=== PATIENT | male | born 1995 | race Caucasian/White ===

== ENCOUNTER 2016-08-01 16:27 | Emergency (ER) | payer MEDICAID ==
[2016-08-01 16:37] VITALS: BP 150/90
--- NOTE | 2016-08-01 16:52 | UC ---
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 - History of Current Complaint Chief Complaint: UCBackPain Stated Complaint: BACK PAIN Time Seen by Provider: 08/01/16 16:50 Hx Obtained From: Patient - Allergies/Home Medications Allergies/Adverse Reactions: Allergies Allergy/AdvReac Type Severity Reaction Status Date / Time No Known Allergies Allergy Verified 08/01/16 16:37 Home Medications: Home Medications Acetaminophen [Eql Acetaminophen Extra S] 1,000 mg PO ONCE 08/01/16 [History Confirmed 08/01/16] PMH/Surg Hx/FS Hx/Imm Hx Previously Healthy: Yes Cardiovascular History: Hypertension - Surgical History Surgical History: None - Family History Known Family History: Negative: Cardiac Disease, Hypertension, Diabetes - Social History Occupation: Employed Full-time Lives: With Family Alcohol Use: None Substance Use Type: None Smoking Status (MU): Heavy Every Day Tobacco Smoker Type: Cigarettes Amount Used/How Often: 1 PPD Household Exposure Type: Cigarettes Cessation Counseling: Patient Advised to Stop Review of Systems Constitutional: Negative Skin: Negative Eyes: Negative ENT: Negative Respiratory: Negative Cardiovascular: Negative Gastrointestinal: Negative Genitourinary: Negative Motor: Negative Neurovascular: Negative Musculoskeletal: Other: - lower bcak pain Neurological: Negative Psychological: Negative All Other Systems Reviewed And Are Negative: Yes Physical Exam Triage Information Reviewed: Yes Vital Signs: Initial Vital Signs Temp 98.9 F 08/01/16 16:31 Pulse 101 08/01/16 16:31 Resp 17 08/01/16 16:31 BP 150/90 08/01/16 16:31 Pulse Ox 99 08/01/16 16:31 Musculoskeletal: Positive: Other: - Spine have no noted deformities , Curvature of thoracic, and lumbar spine are within normal limits. Bony features of shoulders and hips are of equal height bilaterally. Posture is upright, and gait is abnormal. Spinous processes of T1-L5 palpable, midline, and non-tender; No step-offs. left lumbar paraspinal tenderness. Flexion, extension, and rotation of the remaining spinal column is within normal limits. Patient can flex forward and reach toes with minimal pain. movement n any direction causes discomfort Neurological: Positive: Alert, Other: - negative SLR, patellar reflexes intact Psychological Exam: Normal Skin Exam: Normal Back Pain Course/Dx - Course Course Of Treatment: exam completed. exacerbation of chronic lower back pain. no red flags to warrant imaging at this time. will refer to PT, treat with flexeril and naproxen - Differential Dx/Diagnosis Differential Diagnosis/HQI/PQRI: Herniated Disc, Strain, Sprain Provider Diagnoses: lower back pain, elevated blood pressure Discharge - Discharge Plan Condition: Stable Disposition: HOME Prescriptions: Cyclobenzaprine TAB* [Flexeril 10 MG TAB*] 10 mg PO BID PRN #10 tab PRN Reason: Spasms - Muscle Naproxen TAB* [Naprosyn 375 mg TAB*] 375 mg PO BID PRN #20 tab PRN Reason: Pain Patient Education Materials: Low Back Strain (ED) Referrals: KATHLEEN Ayala [Primary Care Provider] - Additional Instructions: Start flexeril as directed. Do not drink alcohol or drive while taking flexeril. Please call physical therapy for further evaluation and treatment. Take naproxen for fever or pain. Increase fluids and rest. Please review your discharge instructions. If your symptoms do not improve please call your primary care provider or return to urgent care. Your blood pressure is elevated. Please contact your primary care provider within 1 -4 weeks for further evaluation.
[2016-08-01] MEDS ORDERED: Ketorolac INJ* 60 MG/2 ML VIAL IM ONE (17:03)
== END 2016-08-01 17:35 | disposition home or self-care (01) ==
LOC: UCCORT 16:27
DX: M54.5 Low back pain (principal); I10 Essential (primary) hypertension; F17.210 Nicotine dependence, cigarettes, uncomplicated
CPT/HCPCS: 96372; 99212; G0463; J1885

== ENCOUNTER 2018-09-14 15:29 | Emergency (ER) | payer OTHER ==
[2018-09-14] MEDS ORDERED: Ibuprofen ADULT LIQ* 600 MG/30 ML UDC PO ONE (17:08)
--- NOTE | 2018-09-14 17:08 | UC ---
UC General HPI - HPI Summary HPI Summary: pt states back of tongue feels raw and throat has felt swollen for 2-3 days. no cough, fever or sob. pt questioned about his rapid HR, he states "they always get nervous about that when I go to the doctor". no cp or palpitations. - History of Current Complaint Chief Complaint: UCGeneralIllness Stated Complaint: TONGUE/THROAT CONCERN Time Seen by Provider: 09/14/18 17:01 Hx Obtained From: Patient Onset/Duration: Gradual Onset Timing: Constant Pain Intensity: 0 - Allergy/Home Medications Allergies/Adverse Reactions: Allergies Allergy/AdvReac Type Severity Reaction Status Date / Time No Known Allergies Allergy Verified 09/14/18 16:30 Home Medications: Home Medications NK [No Home Medications Reported] 09/14/18 [History Confirmed 09/14/18] PMH/Surg Hx/FS Hx/Imm Hx Previously Healthy: Yes - Surgical History Surgical History: None - Family History Known Family History: Negative: Cardiac Disease, Hypertension, Diabetes - Social History Alcohol Use: None Substance Use Type: None Smoking Status (MU): Heavy Every Day Tobacco Smoker Type: Cigarettes Amount Used/How Often: 1 PPD Household Exposure Type: Cigarettes Review of Systems All Other Systems Reviewed And Are Negative: Yes Constitutional: Negative: Fever, Chills ENT: Positive: Sore Throat. Negative: Ear Ache, Sinus Congestion Respiratory: Negative: Shortness Of Breath, Cough Cardiovascular: Negative: Palpitations, Chest Pain Physical Exam Triage Information Reviewed: Yes Appearance: Well-Appearing Vital Signs: Initial Vital Signs Temp 99.4 F 09/14/18 16:24 Pulse 117 09/14/18 16:24 Resp 18 09/14/18 16:24 BP 149/96 09/14/18 16:24 Pulse Ox 98 09/14/18 16:24 Vital Signs Reviewed: Yes ENT: Positive: Pharyngeal erythema - with few vesciles for palate, tip of uvula. , TMs normal, Uvula midline, Other - No stridor.. Negative: Nasal congestion, Nasal drainage, Trismus, Muffled voice, Hoarse voice Neck: Positive: Supple, Tenderness @ - cervical nodes, Enlarged Nodes @ Respiratory: Positive: Lungs clear, Normal breath sounds, No respiratory distress Cardiovascular: Positive: No Murmur, Tachycardia - 120 Abdomen Description: Positive: Nontender, No Organomegaly, Soft Bowel Sounds: Positive: Present Musculoskeletal: Positive: ROM Intact Neurological: Positive: Alert Psychological: Positive: Age Appropriate Behavior Skin Exam: Normal Diagnostics - Laboratory Lab Results: RAPID STREP=NEGATIVE Course/Dx - Course Course Of Treatment: pt tx with po fluids and motrin while here. he remained relaxed and shows no sign of dehydration. pt notes he drinks lots of fluids daily yet he continues to have a resting HR of 117 and elevated BP. he again notes that this happens during doctor visits. he noted the same during an ER visit 2 months ago. I think pt's HR may be more than white coat syndrome. 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 He agrees to f/u with his pcp or cardiology and will go to the Er for any worsening. i did advise that lethal arrhythmia's may be associated with rapid HR's but pt still declined. - Diagnoses Provider Diagnosis: Pharyngitis, Tachycardia Discharge - Sign-Out/Discharge Documenting (check all that apply): Patient Departure All imaging exams completed and their final reports reviewed: No Studies - Discharge Plan Condition: Stable Disposition: HOME Patient Education Materials: Pharyngitis (ED), Tachycardia (ED) Referrals: Danny Baldwin DO [Medical Doctor] - As Soon As Possible KATHLEEN Ayala [Medical Doctor] - Additional Instructions: FOLLOW UP KORIN IF THROAT NOT BETTER IN 3 -5 DAYS. GO TO THE ER FOR ANY WORSENING. - Billing Disposition and Condition Condition: STABLE Disposition: Home
[2018-09-14 17:51] VITALS: BP 149/63
== END 2018-09-14 17:55 | disposition home or self-care (01) ==
LOC: UCCORT 15:29
DX: J02.9 Acute pharyngitis, unspecified (principal); R00.0 Tachycardia, unspecified; F17.210 Nicotine dependence, cigarettes, uncomplicated
CPT/HCPCS: 87651; 99211; A9270-GY; G0463

== ENCOUNTER 2018-12-02 21:31 | Emergency (ER) | payer OTHER ==
[2018-12-02 21:49] VITALS: BP 154/75
[2018-12-02] MEDS ORDERED: Amoxicillin/Clavulanate TAB* 875 MG PO ONE (22:11)
--- NOTE | 2018-12-02 22:15 | UC ---
Throat Pain/Nasal Jung HPI - HPI Summary HPI Summary: 23 year old male presents with 2 day history of fever, chills, sore throat, nasal congestion, sinus pressure, and cough. States he had similar symptoms 6 days ago that had started to improve although they never fully resolved. Denies ear pain, dysphagia, chest pain, shortness of breath, abdominal pain, nausea, vomiting, or diarrhea. - History of Current Complaint Chief Complaint: UCRespiratory Stated Complaint: SORE THROAT COUGH HEADACHE CHILLS FEVER Time Seen by Provider: 12/02/18 21:35 Hx Obtained From: Patient Pain Intensity: 5 - Allergies/Home Medications Allergies/Adverse Reactions: Allergies Allergy/AdvReac Type Severity Reaction Status Date / Time No Known Allergies Allergy Verified 12/02/18 21:49 Home Medications: Home Medications Acetaminophen [Acetaminophen Extra Strength] 1,000 mg PO Q8HR PRN 12/02/18 [ History Confirmed 12/02/18] Ibuprofen TAB* [Motrin TAB* 800 MG] 1,000 mg PO Q8H PRN 12/02/18 [History Confirmed 12/02/18] PMH/Surg Hx/FS Hx/Imm Hx Cardiovascular History: Hypertension - Surgical History Surgical History: None - Family History Known Family History: Negative: Cardiac Disease, Hypertension, Diabetes - Social History Occupation: Employed Full-time Lives: With Family Alcohol Use: Rare Substance Use Type: None Smoking Status (MU): Heavy Every Day Tobacco Smoker Type: Cigarettes Amount Used/How Often: 1 PPD Household Exposure Type: Cigarettes Review of Systems All Other Systems Reviewed And Are Negative: Yes Constitutional: Positive: Fever, Chills Skin: Negative: Rash Eyes: Negative: Drainage, Eye Redness, Photophobia ENT: Positive: Sore Throat, Nasal Discharge, Sinus Congestion, Sinus Pain/ Tenderness. Negative: Ear Ache Respiratory: Positive: Cough. Negative: Shortness Of Breath Cardiovascular: Negative: Palpitations, Chest Pain Gastrointestinal: Negative: Abdominal Pain, Vomiting, Diarrhea, Nausea Genitourinary: Positive: Negative Musculoskeletal: Positive: Myalgia Neurological: Positive: Headache. Negative: Weakness, Paresthesia, Numbness Is Patient Immunocompromised?: No Physical Exam - Summary Physical Exam Summary: GENERAL APPEARANCE: Alert and cooperative obese adult male who appears to be in no acute distress. EYES: Conjunctiva clear. No drainage. EARS: External auditory canals and tympanic membranes clear, hearing grossly intact. NOSE: Moderate nasal congestion. No nasal discharge. Maxillary sinus tenderness. THROAT: Pharyngeal erythema. No tonsilar inflammation, swelling, exudate, or lesions. Uvula midline. NECK: Neck supple, non-tender without lymphadenopathy. CARDIAC: Normal S1 and S2. No S3, S4 or murmurs. Tachycardic at a rate of 114. Rhythm is regular. There is no peripheral edema, cyanosis or pallor. Extremities are warm and well perfused. Capillary refill is less than 2 seconds. Peripheral pulses intact. LUNGS: Clear to auscultation without rales, rhonchi, wheezing or diminished breath sounds. ABDOMEN: Positive bowel sounds. Soft, nondistended, nontender. No guarding or rebound. No masses or hepatosplenomegally. MUSKULOSKELETAL: ROM intact to all extremities. No joint erythema or tenderness. Normal muscular development. Normal gait. SKIN: Skin normal color, texture and turgor with no lesions or eruptions. Triage Information Reviewed: Yes Vital Signs: Initial Vital Signs Temp 99.2 F 12/02/18 21:40 Pulse 134 12/02/18 21:40 Resp 22 12/02/18 21:40 BP 154/75 12/02/18 21:40 Pulse Ox 99 12/02/18 21:40 Vital Signs Reviewed: Yes Throat Pain/Nasal Course/Dx - Course Course Of Treatment: 23 year old male presents with 2 day history of fever, chills, sore throat, nasal congestion, sinus pressure, and cough. States he had similar symptoms 6 days ago that had started to improve although they never fully resolved. Denies ear pain, dysphagia, chest pain, shortness of breath, abdominal pain, nausea, vomiting, or diarrhea. Afebrile. Hypertensive and tachycardic otherwise vital signs stable. Patient had moderate nasal congestion, maxillary sinus tenderness. pharyngeal erythema without tonsilar inflammation, swelling, exudate , or lesions, no cervical lymphadenopathy, clear bilateral breath sounds, and otherwise unremarkable exam. I discussed with the patient that I was concerned about the tachycardia since there was no clear reason however patient states he has has known about the fast heart rate and is declining an EKG at this time. Considering his reports of fever and history of improving then worsening of symptoms I am concerned for a secondary bacterial URI and will start him on Augmentin 875 mg twice a day for 10 days as well as recommend symptomatic treatment. He is to follow up with his PCP within 1 week for recheck of symptoms and evaluation of his tachycardia. Anticipatory guidance and warning symptoms reviewed with the patient. Verbalizes understanding and agrees with POC. - Differential Dx/Diagnosis Differential Diagnosis/HQI/PQRI: Pharyngitis, Sinusitis, Tonsillitis, URI Provider Diagnosis: Upper respiratory infection with cough and congestion Discharge ED - Sign-Out/Discharge Documenting (check all that apply): Patient Departure All imaging exams completed and their final reports reviewed: No Studies - Discharge Plan Condition: Stable Disposition: HOME Prescriptions: Amoxicillin/Clavulanate TAB* [Augmentin TAB 875*] 875 mg PO BID #20 tab Patient Education Materials: Upper Respiratory Infection (ED) Referrals: No Primary Care Phys,NOPCP [Primary Care Provider] - Additional Instructions: Your history and exam are consistent with an upper respiratory infection. With your history of improving symptoms followed by worsening symptoms with fever I am concerned you may have developed a secondary bacterial infection. We will start you on an antibiotic to treat the infection. Start Augmentin 875 mg 1 tablet twice a day for 10 days. Take with food to avoid upset stomach. Be sure to take the entire course even if you're feeling better. We gave you the first dose in the clinic. Drink plenty of fluids to avoid dehydration especially if you are running any fever. Use a saline rinse kit such as Neti Pot or NeilMed at least twice a day to help thin secretions and promote drainage of the sinuses. Use fluticasone (Flonase) nasal spray 2 sprays each nostril once daily. Take over the counter acetaminophen (Tylenol) or ibuprofen (Advil, Motrin) according to directions as needed for pain or fever. Use salt water gargles several times a day if you have a sore throat. You may also use Chloraseptic spray or Cepacol lonzenges according to directions which contain a numbing medication and can provide some temporary relief from your sore throat. Follow up with your primary care provider within the next week for recheck of your symptoms and further evaluation of the rapid heart rate. Seek immediate medical attention in the emergency room if you have fever greater than 100.5 F despite taking acetaminophen or ibuprofen, have chest pain , difficulty breathing, are unable to swallow, or have any worsening of symptoms. - Billing Disposition and Condition Condition: STABLE Disposition: Home - Attestation Statements Provider Attestation: This patient was not seen by me. I was available for consult. ANA
== END 2018-12-02 22:25 | disposition home or self-care (01) ==
LOC: SUPCPDRO 21:31 → UCCORT 21:31
DX: J06.9 Acute upper respiratory infection, unspecified (principal); F17.210 Nicotine dependence, cigarettes, uncomplicated; I10 Essential (primary) hypertension; M79.10 Myalgia, unspecified site; R05 Cough; R09.81 Nasal congestion
CPT/HCPCS: 87651; 99212; A9270-GY; G0463

== ENCOUNTER 2019-01-09 08:39 | Emergency (ER) | payer OTHER ==
[2019-01-09 09:00] VITALS: BP 148/92
--- NOTE | 2019-01-09 09:56 | UC ---
Back Pain HPI - HPI Summary HPI Summary: 23-year-old male who has chronic back problems. 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 He states that he pulled a muscle in his upper back but this is not work related. He denies any numbness or tingling in his extremities. No saddle anesthesia. No Difficulty urinating or moving his bowels. - History of Current Complaint Chief Complaint: UCBackPain Stated Complaint: UPPER BACKPAIN Time Seen by Provider: 01/09/19 09:55 Hx Obtained From: Patient Onset/Duration: Gradual Onset Timing: Intermittent Severity Initially: Mild Severity Currently: Mild Pain Intensity: 3 Back Pain: Is Diffuse - Mostly his upper back Character: Aching, Spasmodic - Occasional spasms in his upper back, patient has some with some movements and can replicate the pain. Aggravating Factor(s): Lifting - Occasional worsening with twisting. Alleviating Factor(s): Rest Associated Signs And Symptoms: Negative: Swelling, Redness, Bruising, Weakness, Numbness, Tingling, Abdominal Pain, Flank Pain, Bladder Incontinence, Bowel Incontinence, Pain with Weight Bearing - Allergies/Home Medications Allergies/Adverse Reactions: Allergies Allergy/AdvReac Type Severity Reaction Status Date / Time No Known Allergies Allergy Verified 01/09/19 08:57 PMH/Surg Hx/FS Hx/Imm Hx Previously Healthy: Yes Cardiovascular History: Hypertension - Surgical History Surgical History: None - Family History Known Family History: Negative: Cardiac Disease, Hypertension, Diabetes - Social History Occupation: Employed Full-time Lives: With Family Alcohol Use: None Substance Use Type: None Smoking Status (MU): Heavy Every Day Tobacco Smoker Type: Cigarettes Amount Used/How Often: 1 PPD Household Exposure Type: Cigarettes Review of Systems All Other Systems Reviewed And Are Negative: Yes Musculoskeletal: Positive: Other: - Mild mid upper back pain with some movements. Radiation of pain. He denies any saddle anesthesia and no numbness or tingling in his extremities. Is Patient Immunocompromised?: No Physical Exam Triage Information Reviewed: Yes Appearance: Well-Appearing, No Pain Distress, Well-Nourished Vital Signs: Initial Vital Signs Temp 99.4 F 01/09/19 08:55 Pulse 109 01/09/19 08:55 Resp 18 01/09/19 08:55 BP 148/92 01/09/19 08:55 Pulse Ox 99 01/09/19 08:55 Vital Signs Reviewed: Yes Neck: Positive: Nontender Respiratory: Positive: Chest non-tender, Lungs clear, Normal breath sounds, No respiratory distress Cardiovascular: Positive: RRR, No Murmur, Pulses Normal, Brisk Capillary Refill Musculoskeletal: Positive: Strength Intact, ROM Intact, No Edema, Other: - Full range of motion of his extremities. Good arm and leg strength against resistance. I am unable to elicit any pain response on palpation to the midportion of his upper back. No bruising, erythema, swelling or deformity is noted. Neurological: Positive: Alert, Muscle Tone Normal, Other: - Reflexes +2 at the knee. Good arm and leg strength against resistance. Psychological Exam: Normal Skin Exam: Normal Back Pain Course/Dx - Course Course Of Treatment: The patient is comfortable here. He only wants today off work and a prescription for muscle relaxant. A prescription for Flexeril was given and he can take Motrin every 8 hours as needed and apply heat or ice to the sore areas. He is to avoid lifting movements that cause pain. He is to follow-up with his primary care provider as needed. - Differential Dx/Diagnosis Provider Diagnosis: Muscle strain of upper back Discharge ED - Sign-Out/Discharge Documenting (check all that apply): Patient Departure All imaging exams completed and their final reports reviewed: No Studies - Discharge Plan Condition: Fair Disposition: HOME Prescriptions: Cyclobenzaprine TAB* [Flexeril 10 MG TAB*] 10 mg PO TID PRN #20 tab PRN Reason: Pain - Mild Patient Education Materials: Chronic Back Pain (DC) Forms: *Work Release Referrals: Madyson Foy PA [Primary Care Provider] - Additional Instructions: Apply ice or heat to the sore area. Ice or heat to the sore area whatever feels more comfortable. Continue to take ibuprofen every 8 hours as needed for pain. No taking alcohol, driving or operating machinery while you're taking the muscle relaxant. Avoid movements that cause pain. Definite follow-up with your primary care provider for further care. - Billing Disposition and Condition Condition: FAIR Disposition: Home
== END 2019-01-09 10:10 | disposition home or self-care (01) ==
LOC: UCCORT 08:39
DX: S29.012A Strain of muscle and tendon of back wall of thorax, initial encounter (principal); F17.210 Nicotine dependence, cigarettes, uncomplicated; X58.XXXA Exposure to other specified factors, initial encounter; Y92.9 Unspecified place or not applicable
CPT/HCPCS: 99212; G0463

== ENCOUNTER 2019-01-12 17:05 | Emergency (ER) | payer OTHER ==
[2019-01-12] MEDS ORDERED: Metoprolol Tartrate TAB* 25 MG PO ONE (17:35)
--- NOTE | 2019-01-12 17:39 | UC ---
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 He took cyclobenzaprine that night due to a back strain, and began to feel dizzy and unwell. he attributed this to a possible interaction between the medications, so he stopped both and has not had a dose of metoprolol for the past 3 days. He was aware of a fever on the morning of 01/09, and has been using ibuprofen to lower temps of 101-104, with fevers spiking about every 4 to 5 hours. He has a sore throat, headache, malaise, nausea and some cough, but he is not short of breath and does not have chest pain. This is his 4th visit since 12/02 with fever and malaise and high heart rate. - History of Current Complaint Chief Complaint: UCGeneralIllness Stated Complaint: COUGH, CONGESTION, FEVER Time Seen by Provider: 01/12/19 17:26 Hx Obtained From: Patient Onset/Duration: Sudden Onset, Lasting Days - 3 Timing: Intermittent Episodes Lasting: - hours Onset Severity: Moderate Current Severity: Moderate Pain Intensity: 0 Associated Signs & Symptoms: Positive: Dizziness - off and on, without diplopia or visual blurring., Decreased Oral Intake - little solid intake and aware of dark urine., Nausea, Palpitations, Recent Medication Changes. Negative: Diaphoresis, Syncope, Trauma, Vomiting - Allergy/Home Medications Allergies/Adverse Reactions: Allergies Allergy/AdvReac Type Severity Reaction Status Date / Time No Known Allergies Allergy Verified 01/12/19 17:28 PMH/Surg Hx/FS Hx/Imm Hx Cardiovascular History: Hypertension, Other - tachycardia at time decision made to begin use of metoprolol. - Surgical History Surgical History: None - Family History Known Family History: Positive: Cardiac Disease, Hypertension - father, Diabetes - Social History Occupation: Employed Full-time Lives: With Family Alcohol Use: None Substance Use Type: None Smoking Status (MU): Heavy Every Day Tobacco Smoker Type: Cigarettes Amount Used/How Often: 1 PPD Household Exposure Type: Cigarettes Review of Systems All Other Systems Reviewed And Are Negative: Yes Constitutional: Positive: Fever, Chills, Fatigue Skin: Positive: Negative Eyes: Positive: Blurred Vision ENT: Positive: Sore Throat, Sinus Congestion Respiratory: Positive: Cough. Negative: Shortness Of Breath Cardiovascular: Positive: Palpitations - aware of high heart rate.. Negative: Chest Pain Gastrointestinal: Positive: Nausea Genitourinary: Positive: Negative Motor: Positive: Negative Neurovascular: Positive: Negative Musculoskeletal: Positive: Arthralgia Neurological: Positive: Headache Psychological: Positive: Negative Is Patient Immunocompromised?: No Physical Exam Triage Information Reviewed: Yes Appearance: Ill-Appearing - looks flushed and unwell, mildly anxious, Obese Vital Signs: Initial Vital Signs Temp 100.3 F 01/12/19 17:25 Pulse 146 01/12/19 17:25 Resp 20 01/12/19 17:25 BP 160/94 01/12/19 17:25 Pulse Ox 98 01/12/19 17:25 Eyes: Positive: Conjunctiva Inflamed - bilateral eye erythema ENT: Positive: Pharyngeal erythema, Tonsillar swelling. Negative: Tonsillar exudate Dental Exam: Normal Neck: Positive: Supple, Nontender, No Lymphadenopathy Respiratory: Positive: Lungs clear, Normal breath sounds Cardiovascular: Positive: No Murmur, Tachycardia Musculoskeletal Exam: Normal Musculoskeletal: Positive: Strength Intact Neurological Exam: Normal Neurological: Positive: Alert, Muscle Tone Normal Psychological Exam: Normal Skin Exam: Normal Diagnostics - Radiology No standard instances Radiology Interpretation Completed By: ED Physician Summary of Radiographic Findings: Chest xray: poor inspiration, ?possible small infiltrate on lateral view, no effusion. - EKG Cardiac Rate: Tachycardia Cardiac Rhythm: Sinus: Normal Ectopy: None ST Segment: Normal Re-Evaluation - Re-Evaluation First Eval Re-Evaluation Time: 18:20 Change: Improved Comment: blood pressure decreased to 127/89 Course/Dx - Course Course Of Treatment: 23 yo with recurrent visits x 4 for fevers and upper back pain. Presents with fever and tachycardia, which could have been promoted by abrupt cessation of metoprolol. Review of recent visits shows low grade fevers and tachycardia. Thyroid check normal in November. He has not had a CBC. Labs drawn. Lyme disease unlikely but being considered. 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 Patient states his children are also missing a lot of school and he personally has missed about 40 days of work this year. Discussed importance of follow up with PMD next week. Take metoprolol 50mg daily until seen by BIOCHEMISTRY TECHNICIAN/ - Differential Dx - Multi-Symptom Differential Diagnoses: Other - pneumonia - Diagnoses Provider Diagnosis: Pneumonia Discharge ED - Sign-Out/Discharge Documenting (check all that apply): Patient Departure All imaging exams completed and their final reports reviewed: No - Discharge Plan Condition: Stable Disposition: HOME Prescriptions: DOXYcycline CAP(*) [DOXYcycline 100MG CAP(*)] 100 mg PO BID #14 cap Patient Education Materials: Community Acquired Pneumonia (ED) Referrals: Madyson Foy PA [Primary Care Provider] - Additional Instructions: Begin doxycycline for possible pneumonia. Continue acetminphen for control of pain and fever. Blood count was done today to check white count, and Lyme serology has been done. The Lyme test will take several days. Take metoprolol 50mg tonight, and then continue 50mg once daily until assessed by your primary care doctor. FOLLOW UP WITH YOUR PRIMARY CARE DOCTOR IS ESSENTIAL TO WORK OUT WHY YOU ARE HAVING RECURRENT ILLNESSES AND WHY YOUR HEART RATE IS HIGH. - Billing Disposition and Condition Condition: STABLE Disposition: Home
[2019-01-12 18:03] LABS: Influenza A Molecular NEGATIVE (Negative); Influenza B Molecular NEGATIVE (Negative)
[2019-01-12] MEDS ORDERED: Acetaminophen TAB* 325 MG PO ONE (18:19)
[2019-01-12 18:21] VITALS: BP 127/89
[2019-01-12] MEDS ORDERED: DOXYcycline CAP(*) 100 MG PO ONE (19:05)
--- NOTE | 2019-01-13 09:05 | UC ---
- Progress Note Progress Note: Final radiologist reading of the chest x-ray from January 12, 2019 comes back as no acute process. Provider interpretation of the same date was possible small infiltrate on the lateral view and the patient was treated for pneumonia. Nursing to call patient in form the patient of the radiologist's final reading. At this time this does not change the medical treatment. Course/Dx - Diagnoses Provider Diagnoses: Pneumonia Discharge ED - Sign-Out/Discharge Documenting (check all that apply): Patient Departure All imaging exams completed and their final reports reviewed: Yes - Discharge Plan Condition: Stable Disposition: HOME Prescriptions: DOXYcycline CAP(*) [DOXYcycline 100MG CAP(*)] 100 mg PO BID #14 cap Patient Education Materials: Community Acquired Pneumonia (ED) Referrals: Madyson Foy PA [Primary Care Provider] - Additional Instructions: Begin doxycycline for possible pneumonia. Continue acetminphen for control of pain and fever. Blood count was done today to check white count, and Lyme serology has been done. The Lyme test will take several days. Take metoprolol 50mg tonight, and then continue 50mg once daily until assessed by your primary care doctor. FOLLOW UP WITH YOUR PRIMARY CARE DOCTOR IS ESSENTIAL TO WORK OUT WHY YOU ARE HAVING RECURRENT ILLNESSES AND WHY YOUR HEART RATE IS HIGH. - Billing Disposition and Condition Condition: STABLE Disposition: Home
[2019-01-13 10:27] LABS: Hematocrit 47 % (42-52); Hemoglobin 16.4 g/dL (14.0-18.0); Mean Corpuscular HGB Conc 35 g/dL (31-36); Mean Corpuscular Hemoglobin 29 pg (27-31); Mean Corpuscular Volume 83 fL (80-94); Red Blood Count 5.63 10^6 /uL (4.18-5.48); Red Cell Distribution Width 14 % (10-15)
[2019-01-13 11:09] LABS: Albumin 4.5 g/dL (3.2-5.2); CO2 Carbon Dioxide 23 mmol/L (22-32); Calcium 9.4 mg/dL (8.6-10.3); Chloride 101 mmol/L (101-111); Sodium 136 mmol/L (135-145)
[2019-01-13 11:15] LABS: ALT 18 U/L (7-52); Albumin/Globulin Ratio 1.5 (1-3); Alkaline Phosphatase 101 U/L (34-104); BUN/Creatinine Ratio 11.9 (8-20); Blood Urea Nitrogen 12 mg/dL (6-24); EGFR African American 108.9 (>60); Globulin 3.1 g/dL (2-4); Glucose 101 mg/dL (70-100); Total Protein 7.6 g/dL (6.4-8.9)
[2019-01-13 11:41] LABS: Platelet Count Platelets clumped. 10^3/uL (150-450)
[2019-01-13 11:43] LABS: White Blood Count 10.1 10^3/uL (3.5-10.8)
[2019-01-13 11:44] LABS: ABS Lymphocytes 2.1 10^3/ul (1.0-4.8); ABS Monocytes 1.4 10^3/ul (0-0.8); ABS Neutrophils 6.5 10^3/ul (1.5-7.7); ABS Nucleated RBC 0.1 10^3/ul; Eosinophil % 0.3 %; Lymphocyte % 21.2 %; Nucleated Red Blood Cells % 0.5
[2019-01-13 11:59] LABS: Anion Gap 12 mmol/L (2-11)
== END 2019-01-12 19:20 | disposition home or self-care (01) ==
LOC: UCCORT 17:05
DX: J18.9 Pneumonia, unspecified organism (principal); I10 Essential (primary) hypertension; J02.9 Acute pharyngitis, unspecified; R00.0 Tachycardia, unspecified; M54.89 Other dorsalgia; R42 Dizziness and giddiness; R53.81 Other malaise; E66.9 Obesity, unspecified; F41.9 Anxiety disorder, unspecified; F17.210 Nicotine dependence, cigarettes, uncomplicated
CPT/HCPCS: 36415; 71046; 80053; 85025; 85060; 86618; 87651; 93005; 99213; A9270-GY; G0463

== ENCOUNTER 2019-04-08 09:27 | Emergency (ER) | payer OTHER ==
[2019-04-08 09:57] VITALS: BP 128/89
[2019-04-08 10:16] LABS: Influenza A Molecular Negative (Negative); Influenza B Molecular Negative (Negative)
--- NOTE | 2019-04-08 10:19 | UC ---
FLU HPI - HPI Summary HPI Summary: 24 year old male with flu like illness. "I think I got the flu or flu symptoms. " Fever (tmax 101.2), headache, congestion, cough, decreased appetite, nausea with three episodes of vomiting (last episode eight hours), myalgias, chills, sweats, and fatigue/difficulty sleeping for two and a half days. Children had similar symptoms but one tested negative. - History of Current Complaint Chief Complaint: UCRespiratory Stated Complaint: FLU SYMPTOMS Time Seen by Provider: 04/08/19 10:17 Hx Obtained From: Patient Pain Intensity: 5 - Allergy/Home Medications Allergies/Adverse Reactions: Allergies Allergy/AdvReac Type Severity Reaction Status Date / Time No Known Allergies Allergy Verified 04/08/19 09:52 Home Medications: Home Medications Acetaminophen [Acetaminophen Extra Strength] 1,000 mg PO Q8HR PRN 12/02/18 [ History Confirmed 04/08/19] Ibuprofen TAB* [Advil TAB*] 1,000 mg PO ONCE PRN 04/08/19 [History Confirmed ] Metoprolol Tartrate TAB* [Lopressor TAB*] 50 mg PO DAILY 04/08/19 [History Confirmed 04/08/19] Ondansetron ODT TAB* [Zofran 4 MG Odt TAB*] 4 mg PO Q6H PRN #10 tab.odt [Rx] PMH/Surg Hx/FS Hx/Imm Hx Previously Healthy: Yes Cardiovascular History: Hypertension - Surgical History Surgical History: None - Family History Known Family History: Positive: Cardiac Disease, Hypertension - father, Diabetes - Social History Alcohol Use: None Substance Use Type: None Smoking Status (MU): Heavy Every Day Tobacco Smoker Type: Cigarettes Amount Used/How Often: 1 PPD Length of Time of Smoking/Using Tobacco: Since Age 13 Household Exposure Type: Cigarettes Review of Systems All Other Systems Reviewed And Are Negative: Yes Constitutional: Positive: Fever, Chills, Fatigue ENT: Positive: Ear Ache, Nasal Discharge, Sinus Congestion, Sinus Pain/ Tenderness Respiratory: Positive: Cough Musculoskeletal: Positive: Myalgia Neurological/Mental Status: Positive: Headache Is Patient Immunocompromised?: No Physical Exam Triage Information Reviewed: Yes Appearance: Well-Appearing Vital Signs: Initial Vital Signs Temp 98.2 F 04/08/19 09:49 Pulse 109 04/08/19 09:49 Resp 18 04/08/19 09:49 BP 128/89 04/08/19 09:49 Pulse Ox 99 04/08/19 09:49 Vital Signs Reviewed: Yes Eye Exam: Normal ENT Exam: Normal ENT: Positive: Nasal congestion, TM dull Dental Exam: Normal Neck exam: Normal Neck: Positive: 1 Respiratory Exam: Normal Cardiovascular Exam: Normal Abdominal Exam: Normal Musculoskeletal Exam: Normal Neurological Exam: Normal Psychological Exam: Normal Skin Exam: Normal Flu Course/Dx - Course Course Of Treatment: neg flu test for him and son. flu like. vitals stable. no respiratory distress. if sx worsen go to ED. - Differential Dx/Diagnosis Differential Diagnosis/HQI/PQRI: Broncholiolitis, Influenza, RSV, Upper Respiratory Infection Provider Diagnosis: Viral respiratory illness Discharge ED - Sign-Out/Discharge Documenting (check all that apply): Patient Departure All imaging exams completed and their final reports reviewed: No Studies - Discharge Plan Condition: Good Disposition: HOME Prescriptions: Ondansetron ODT TAB* [Zofran 4 MG Odt TAB*] 4 mg PO Q6H PRN #10 tab.odt PRN Reason: Nausea Patient Education Materials: Viral Syndrome (ED) Forms: *Work Release Referrals: Madyson Foy PA [Primary Care Provider] - 2 Days - Billing Disposition and Condition Condition: GOOD Disposition: Home
== END 2019-04-08 10:46 | disposition home or self-care (01) ==
LOC: UCCORT 09:27
DX: B34.9 Viral infection, unspecified (principal); I10 Essential (primary) hypertension; R09.81 Nasal congestion; M79.10 Myalgia, unspecified site; R53.83 Other fatigue; F17.210 Nicotine dependence, cigarettes, uncomplicated; R05 Cough; R51 Headache; R11.2 Nausea with vomiting, unspecified; Z79.899 Other long term (current) drug therapy
CPT/HCPCS: 99212; G0463

== ENCOUNTER 2019-04-08 19:47 | Emergency (ER) | payer OTHER ==
[2019-04-08 20:14] VITALS: BP 141/95
== END 2019-04-08 20:42 | disposition left against medical advice (07) ==
LOC: ED 19:47
DX: R42 Dizziness and giddiness (principal); Z53.21 Procedure and treatment not carried out due to patient leaving prior to being seen by health care provider
CPT/HCPCS: 99282